=== PATIENT | male | born 1995 | race African-American/Black ===

== ENCOUNTER 2020-06-04 02:46 | Inpatient (IN) | payer OTHER, MEDICAID ==
[~2020-06-04] VITALS: Ht 180.3 cm; Wt 66.2 kg
[2020-06-04] MEDS ORDERED: 0.9% SODIUM CHLORIDE 10 ML SYRINGE IVP PRN (04:15)
[2020-06-04] MEDS ORDERED: ACETAMINOPHEN 325 MG TABLET PO PRN (04:15)
[2020-06-04] MEDS ORDERED: ONDANSETRON HCL 4 MG/2 ML VIAL IVP PRN ×2 (04:15→04:45)
[2020-06-04 04:43] LABS: COVID AG,FIA SOURCE NASOPHARYNGEAL
[2020-06-04 04:45] LABS: HEMATOCRIT 34.7 % (41-53); HEMOGLOBIN 10.6 g/dL (13.5-17.5); MEAN CORPUSCULAR HEMOGLOBIN 24.2 pg (26.0-34.0); MEAN CORPUSCULAR HGB CONC 30.5 G/dL (31.0-37.0); MEAN CORPUSCULAR VOLUME 79 fL (80-100); PLATELET COUNT (AUTO) 273 K/uL (150-450); RED BLOOD CELL COUNT(AUTO) 4.38 MIL/uL (4.50-5.90); RED CELL DISTRIBUTION WIDTH 22.2 % (11.5-14.5)
[2020-06-04 05:13] LABS: ANION GAP 10 mmol/L (8-16); APPEARANCE,URINE CLEAR (CLEAR); BILIRUBIN,URINE NEGATIVE (NEGATIVE); CALCIUM, TOTAL 8.7 mg/dL (8.8-10.5); CARBON DIOXIDE 24 mmol/L (22-29); CHLORIDE 106 mmol/L (98-107); CREATININE 1.14 mg/dL (0.60-1.30); GLOMERULAR FILTR. RATE CALC > 60 mL/min (>60); GLUCOSE, URINE (UA) NEGATIVE (NEGATIVE); GLUCOSE,RANDOM 100 mg/dL (70-110); KETONES,URINE NEGATIVE (NEGATIVE); LEUKOCYTE ESTERASE ,URINE NEGATIVE (NEGATIVE); NITRATE,URINE NEGATIVE (NEGATIVE); OCCULT BLOOD,URINE SMALL (NEGATIVE); POTASSIUM 4.6 mmol/L (3.5-5.1); PROTEIN,URINE SEE CONFIRM (NEGATIVE); SODIUM SERUM 140 mmol/L (136-145); UREA NITROGEN, BLOOD 16 mg/dL (7-18)
[2020-06-04 05:18] LABS: AMPHET/METH SCREEN,URINE NEGATIVE (NEGATIVE); BARBITURATE SCREEN, URINE NEGATIVE (NEGATIVE); BENZODIAZEPINES SCREEN,URINE NEGATIVE (NEGATIVE); CANNABINOID SCREEN,URINE NEGATIVE (NEGATIVE); COCAINE SCREEN,URINE NEGATIVE (NEGATIVE); METHADONE SCREEN, URINE NEGATIVE (NEGATIVE); OPIATE SCREEN,URINE NEGATIVE (NEGATIVE)
[2020-06-04 05:19] LABS: INFLUENZA TYPE A NEGATIVE FOR TYPE A (NEGATIVE); INFLUENZA TYPE B NEGATIVE FOR TYPE B (NEGATIVE)
[2020-06-04 05:21] LABS: B-TYPE NATRIURETIC PEPTIDE 579 pg/mL (0-100)
[2020-06-04 05:23] LABS: PHENCYCLIDINE SCREEN,URINE NEGATIVE (NEGATIVE)
[2020-06-04 05:26] LABS: SULFOSALICYLIC ACID,URINE 2+ (Negative)
[2020-06-04 05:27] LABS: BACTERIA,URINE None Seen /HPF (None Seen); RBC,URINE 0-2 /HPF (0-2); SQUAMOUS EPITHELIAL CELL,UR Rare /LPF (None Seen); WBC,URINE 0-2 /HPF (0-5)
[2020-06-04 05:37] LABS: ALANINE AMINOTRANSFERASE 39 U/L (12-78); ALBUMIN 2.5 g/dL (3.4-5.0); ALKALINE PHOSPHATASE 212 U/L (46-116); ASPARTATE AMINOTRANSFERASE 56 U/L (15-37); BILIRUBIN,TOTAL 1.6 mg/dL (0.1-1.0); CREATINE KINASE, TOTAL ONLY 149 U/L (39-308); LIPASE 110 U/L (73-393); TOTAL PROTEIN, SERUM 8.3 g/dL (6.4-8.2)
[2020-06-04 05:47] LABS: LACTIC ACID 2.6 mmol/L (0.4-2.0)
[2020-06-04 06:01] LABS: BAND NEUTROPHILS % (MANUAL) 6 % (0-5); LYMPHOCYTES % (MANUAL) 12 % (22-44); MONOCYTES % (MANUAL) 8 % (2-9); SEGMENTED NEUTROPHILS % 74 % (40-70)
[2020-06-04 06:20] LABS: % IRON SATURATION 15.7 % (30-44)
[2020-06-04] MEDS: HEPARIN SODIUM,PORCINE 5,000 UNITS/ML VIAL SQ SCH ×3 (08:02→23:21)
[2020-06-04 08:31] VITALS: BP 121/87
[2020-06-04] MEDS ORDERED: INFLUENZA VIRUS VACCINE QVS 2020-21 (6MO+)/PF 60 MCG/0.5 ML SYRINGE IM ONE (11:15)
[2020-06-04] MEDS ORDERED: PNEUMOCOCCAL VACCINE POLYVALENT 0.5 ML VIAL [PPSV23] IM ONE (11:15)
[2020-06-04 11:25] VITALS: BP 129/77
[2020-06-04] MEDS: FUROSEMIDE 20 MG/2 ML VIAL IVP SCH ×2 (13:27→20:17)
[2020-06-04 15:46] VITALS: BP 147/78
[2020-06-04 19:30] VITALS: BP 132/86
[2020-06-04 22:00] VITALS: BP 135/81
[2020-06-04] MEDS ORDERED: IOVERSOL 350 MG/ML 100 ML VIAL ONE (23:49)
[2020-06-04] MEDS ORDERED: SODIUM CHLORIDE 0.9% 100 ML ONE (23:49)
[2020-06-05] MEDS ORDERED: SODIUM CHLORIDE 3% 15 ML NEB SOLUTION NEB ONE (03:18)
[2020-06-05 03:50] VITALS: BP 134/85
[2020-06-05] MEDS: FUROSEMIDE 20 MG/2 ML VIAL IVP SCH (08:33)
[2020-06-05] MEDS: HEPARIN SODIUM,PORCINE 5,000 UNITS/ML VIAL SQ SCH (08:33)
[2020-06-05 09:02] VITALS: BP 133/105
[2020-06-05] MEDS: LISINOPRIL 10 MG TABLET PO SCH (11:00)
[2020-06-05] MEDS: FAMOTIDINE 20 MG TABLET PO SCH ×2 (11:00→21:12)
[2020-06-05] MEDS ORDERED: SODIUM CHLORIDE 0.9% 500 ML IV ONE (11:35)
[2020-06-05] MEDS: DOXYCYCLINE HYCLATE 100 MG TABLET PO SCH ×2 (11:59→21:12)
[2020-06-05] MEDS: CefTRIAXone 1 GM/DEXTROSE 50 ML IV SCH (11:59)
[2020-06-05 15:24] VITALS: BP 131/60
[2020-06-05 16:48] VITALS: BP 131/90
[2020-06-05] MEDS: ACETAMINOPHEN 325 MG TABLET PO PRN (17:09)
[2020-06-05 19:20] VITALS: BP 133/86
[2020-06-05 22:04] LABS: HIV 1-2 SCREEN 4TH GEN W/RFLX Non Reactive (Non Reactive)
[2020-06-05 23:54] VITALS: BP 124/80
[2020-06-06 04:15] VITALS: BP 118/113
[2020-06-06 07:27] VITALS: BP 126/82
[2020-06-06] MEDS: LISINOPRIL 10 MG TABLET PO SCH (09:07)
[2020-06-06] MEDS: DOXYCYCLINE HYCLATE 100 MG TABLET PO SCH ×2 (09:07→20:35)
[2020-06-06] MEDS: FAMOTIDINE 20 MG TABLET PO SCH ×2 (09:07→20:35)
[2020-06-06] MEDS: FUROSEMIDE 20 MG TABLET PO SCH (09:07)
[2020-06-06 11:27] VITALS: BP 122/88
[2020-06-06 11:49] LABS: INR 1.7 (0.9-1.1)
[2020-06-06 11:52] LABS: ALANINE AMINOTRANSFERASE 35 U/L (12-78); ALBUMIN 2.2 g/dL (3.4-5.0); ALKALINE PHOSPHATASE 174 U/L (46-116); ANION GAP 10 mmol/L (8-16); ASPARTATE AMINOTRANSFERASE 53 U/L (15-37); BILIRUBIN,TOTAL 1.8 mg/dL (0.1-1.0); CALCIUM, TOTAL 8.6 mg/dL (8.8-10.5); CARBON DIOXIDE 26 mmol/L (22-29); CHLORIDE 105 mmol/L (98-107); CREATININE 1.07 mg/dL (0.60-1.30); GLOMERULAR FILTR. RATE CALC > 60 mL/min (>60); GLUCOSE,RANDOM 69 mg/dL (70-110); POTASSIUM 4.4 mmol/L (3.5-5.1); SODIUM SERUM 141 mmol/L (136-145); TOTAL PROTEIN, SERUM 7.7 g/dL (6.4-8.2); UREA NITROGEN, BLOOD 20 mg/dL (7-18)
[2020-06-06 15:23] VITALS: BP 129/78
[2020-06-06] MEDS ORDERED: SODIUM CHLORIDE 0.9% 250 ML IV ONE (15:28)
[2020-06-06] MEDS: CefTRIAXone 1 GM/DEXTROSE 50 ML IV SCH (15:40)
[2020-06-06 17:32] LABS: SPECIMENTYPE,BODY FLUID PLEURAL
[2020-06-06 20:00] VITALS: BP 128/82
[2020-06-06] MEDS: CARVEDILOL 3.125 MG TABLET PO SCH (20:35)
[2020-06-06 20:45] LABS: APPEARANCE,SPUN,BODY FLUID CLEAR (CLEAR); APPEARANCE,UNSPUN,BODY FLUID CLOUDY (CLEAR); BODY FLUID RBC 1329.4 /cu. mm.; COLOR,BODY FLUID YELLOW (LT YELLOW); LYMPHOCYTES,BODY FLUID 35 %; MONOCYTES,BODY FLUID 7 %; NEUTROPHILS,BODY FLUID 58 %; TOTAL VOLUME,BODY FLUID 1650 mL; WBC, BODY FLUID 101.11 /cu. mm.
[2020-06-07] MEDS: ACETAMINOPHEN 325 MG TABLET PO PRN (00:07)
[2020-06-07 00:24] VITALS: BP 129/102
[2020-06-07 05:10] VITALS: BP 108/81
[2020-06-07 08:21] VITALS: BP 107/78
[2020-06-07] MEDS: FAMOTIDINE 20 MG TABLET PO SCH ×2 (08:46→21:03)
[2020-06-07] MEDS: DOXYCYCLINE HYCLATE 100 MG TABLET PO SCH ×2 (08:46→21:03)
[2020-06-07] MEDS: FUROSEMIDE 20 MG TABLET PO SCH (08:46)
[2020-06-07] MEDS: CARVEDILOL 3.125 MG TABLET PO SCH ×2 (09:00→21:03)
[2020-06-07] MEDS: LISINOPRIL 10 MG TABLET PO SCH (09:00)
[2020-06-07 13:19] LABS: SPECIMENTYPE,BODY FLUID ASCITES
[2020-06-07] MEDS ORDERED: SODIUM CHLORIDE 3% 15 ML NEB SOLUTION NEB ONE (14:41)
[2020-06-07] MEDS: CefTRIAXone 1 GM/DEXTROSE 50 ML IV SCH (14:43)
[2020-06-07 15:37] VITALS: BP 120/74
[2020-06-07 16:10] LABS: APPEARANCE,SPUN,BODY FLUID CLEAR (CLEAR); APPEARANCE,UNSPUN,BODY FLUID CLOUDY (CLEAR); COLOR,BODY FLUID YELLOW (LT YELLOW); TOTAL VOLUME,BODY FLUID 700 mL; WBC, BODY FLUID 60 /cu. mm.
[2020-06-07 16:11] LABS: BASOPHILS,BODY FLUID 0 %; EOSINOPHILS,BF (ANAL) 0 %; LYMPHOCYTES,BODY FLUID 94 %; MONOCYTES,BODY FLUID 3 %; NEUTROPHILS,BODY FLUID 3 %
[2020-06-07 20:05] VITALS: BP 116/81
[2020-06-07 22:25] VITALS: BP 117/67
[2020-06-08 05:35] VITALS: BP 111/73
[2020-06-08 08:33] VITALS: BP 119/74
[2020-06-08] MEDS: FUROSEMIDE 20 MG TABLET PO SCH (08:55)
[2020-06-08] MEDS: DOXYCYCLINE HYCLATE 100 MG TABLET PO SCH ×2 (08:55→20:25)
[2020-06-08] MEDS: LISINOPRIL 10 MG TABLET PO SCH (08:55)
[2020-06-08] MEDS: CARVEDILOL 3.125 MG TABLET PO SCH ×2 (08:55→20:25)
[2020-06-08] MEDS: FAMOTIDINE 20 MG TABLET PO SCH ×2 (08:55→20:25)
[2020-06-08] MEDS: CefTRIAXone 1 GM/DEXTROSE 50 ML IV SCH (10:50)
[2020-06-08 20:35] VITALS: BP 132/85
[2020-06-09 04:45] VITALS: BP 132/83
[2020-06-09] MEDS: ACETAMINOPHEN 325 MG TABLET PO PRN (05:15)
[2020-06-09 07:15] LABS: HEMATOCRIT 33.3 % (41-53); HEMOGLOBIN 10.1 g/dL (13.5-17.5); MEAN CORPUSCULAR HEMOGLOBIN 24.4 pg (26.0-34.0); MEAN CORPUSCULAR HGB CONC 30.3 G/dL (31.0-37.0); MEAN CORPUSCULAR VOLUME 81 fL (80-100); PLATELET COUNT (AUTO) 196 K/uL (150-450); RED BLOOD CELL COUNT(AUTO) 4.13 MIL/uL (4.50-5.90)
[2020-06-09 07:24] LABS: ALANINE AMINOTRANSFERASE 31 U/L (12-78); ALKALINE PHOSPHATASE 154 U/L (46-116); ANION GAP 10 mmol/L (8-16); ASPARTATE AMINOTRANSFERASE 31 U/L (15-37); BILIRUBIN,TOTAL 0.9 mg/dL (0.1-1.0); CALCIUM, TOTAL 8.2 mg/dL (8.8-10.5); CARBON DIOXIDE 23 mmol/L (22-29); CHLORIDE 106 mmol/L (98-107); CREATININE 1.07 mg/dL (0.60-1.30); GLOMERULAR FILTR. RATE CALC > 60 mL/min (>60); GLUCOSE,RANDOM 84 mg/dL (70-110); LACTATE DEHYDROGENASE 277 U/L (85-227); POTASSIUM 4.5 mmol/L (3.5-5.1); SODIUM SERUM 139 mmol/L (136-145); TOTAL PROTEIN, SERUM 6.8 g/dL (6.4-8.2); UREA NITROGEN, BLOOD 21 mg/dL (7-18)
[2020-06-09 07:41] VITALS: BP 113/70
[2020-06-09] MEDS: FAMOTIDINE 20 MG TABLET PO SCH ×2 (08:28→21:22)
[2020-06-09] MEDS: FUROSEMIDE 20 MG TABLET PO SCH (08:28)
[2020-06-09] MEDS: LISINOPRIL 10 MG TABLET PO SCH (08:28)
[2020-06-09] MEDS: CARVEDILOL 3.125 MG TABLET PO SCH ×2 (08:28→21:22)
[2020-06-09] MEDS: DOXYCYCLINE HYCLATE 100 MG TABLET PO SCH ×2 (08:28→21:22)
[2020-06-09 08:35] LABS: BAND NEUTROPHILS % (MANUAL) 0 % (0-5)
[2020-06-09 08:36] LABS: CORRECTED WHITE BLOOD COUNT 3.4 K/uL (4.5-11.0); EOSINOPHILS % (MANUAL) 1 % (1-6); LYMPHOCYTES % (MANUAL) 25 % (22-44); MONOCYTES % (MANUAL) 12 % (2-9); SEGMENTED NEUTROPHILS % 62 % (40-70)
[2020-06-09] MEDS: CefTRIAXone 1 GM/DEXTROSE 50 ML IV SCH (11:33)
[2020-06-09 15:38] LABS: ORGANISM ID Not Indicated; S PNEUMO SOURCE Urine
[2020-06-09 15:39] LABS: STREP PNEUMONIAE AG URINE Negative
[2020-06-09 18:39] LABS: QUANTIFERON, TB GOLD PLUS Positive (Negative)
[2020-06-09 18:39] LABS: LEGIONELLA PNEUMO AG URINE Negative (Negative)
[2020-06-09 20:29] VITALS: BP 125/70
[2020-06-10 04:52] VITALS: BP 117/84
[2020-06-10 08:05] VITALS: BP 112/64
[2020-06-10] MEDS: DOXYCYCLINE HYCLATE 100 MG TABLET PO SCH (08:35)
[2020-06-10] MEDS: FUROSEMIDE 20 MG TABLET PO SCH (08:35)
[2020-06-10] MEDS: FAMOTIDINE 20 MG TABLET PO SCH ×2 (08:35→20:33)
[2020-06-10] MEDS: CARVEDILOL 3.125 MG TABLET PO SCH ×2 (08:35→20:34)
[2020-06-10] MEDS: LISINOPRIL 10 MG TABLET PO SCH (08:35)
[2020-06-10] MEDS ORDERED: SODIUM CHLORIDE 0.9% 250 ML IV ONE (10:50)
[2020-06-10] MEDS: CefTRIAXone 1 GM/DEXTROSE 50 ML IV SCH (11:09)
[2020-06-10] MEDS: PYRAZINAMIDE 500 MG TABLET PO SCH (11:42)
[2020-06-10] MEDS: RIFAMPIN 300 MG CAPSULE PO SCH (11:42)
[2020-06-10] MEDS: ISONIAZID 300 MG TABLET PO SCH (11:42)
[2020-06-10] MEDS: PYRIDOXINE HCL 50 MG TABLET PO SCH (11:42)
[2020-06-10] MEDS: ETHAMBUTOL HCL 400 MG TABLET PO SCH (11:43)
[2020-06-10 20:32] VITALS: BP 138/71
[2020-06-10] MEDS: ACETAMINOPHEN 325 MG TABLET PO PRN (20:33)
[2020-06-11 07:58] VITALS: BP 118/65
[2020-06-11] MEDS: PYRIDOXINE HCL 50 MG TABLET PO SCH (08:57)
[2020-06-11] MEDS: PYRAZINAMIDE 500 MG TABLET PO SCH (08:57)
[2020-06-11] MEDS: LISINOPRIL 10 MG TABLET PO SCH (08:58)
[2020-06-11] MEDS: MULTIVITAMINS WITH MINERALS, THERAPEUTIC TABLET PO SCH (08:58)
[2020-06-11] MEDS: FUROSEMIDE 20 MG TABLET PO SCH (08:58)
[2020-06-11] MEDS: CARVEDILOL 3.125 MG TABLET PO SCH ×2 (08:58→22:07)
[2020-06-11] MEDS: FAMOTIDINE 20 MG TABLET PO SCH ×2 (08:58→22:07)
[2020-06-11] MEDS: ISONIAZID 300 MG TABLET PO SCH (08:58)
[2020-06-11] MEDS: RIFAMPIN 300 MG CAPSULE PO SCH (08:58)
[2020-06-11] MEDS: ETHAMBUTOL HCL 400 MG TABLET PO SCH (12:48)
[2020-06-11 20:08] VITALS: BP 126/94
[2020-06-11] MEDS ORDERED: IOVERSOL 350 MG/ML 100 ML VIAL ONE (20:52)
[2020-06-11] MEDS ORDERED: SODIUM CHLORIDE 0.9% 100 ML ONE (20:52)
[2020-06-11] MEDS: ACETAMINOPHEN 325 MG TABLET PO PRN (22:07)
[2020-06-12 05:05] VITALS: BP 123/77
[2020-06-12 08:26] VITALS: BP 112/81
[2020-06-12] MEDS: FUROSEMIDE 20 MG TABLET PO SCH (08:43)
[2020-06-12] MEDS: PYRIDOXINE HCL 50 MG TABLET PO SCH (08:43)
[2020-06-12] MEDS: PYRAZINAMIDE 500 MG TABLET PO SCH (08:43)
[2020-06-12] MEDS: CARVEDILOL 3.125 MG TABLET PO SCH ×2 (08:43→19:46)
[2020-06-12] MEDS: LISINOPRIL 10 MG TABLET PO SCH (08:43)
[2020-06-12] MEDS: ISONIAZID 300 MG TABLET PO SCH (08:43)
[2020-06-12] MEDS: ETHAMBUTOL HCL 400 MG TABLET PO SCH (08:43)
[2020-06-12] MEDS: RIFAMPIN 300 MG CAPSULE PO SCH (08:43)
[2020-06-12] MEDS: FAMOTIDINE 20 MG TABLET PO SCH ×2 (08:43→19:46)
[2020-06-12] MEDS: MULTIVITAMINS WITH MINERALS, THERAPEUTIC TABLET PO SCH (09:34)
[2020-06-12 15:39] LABS: ALANINE AMINOTRANSFERASE 27 U/L (12-78); ALBUMIN 2.2 g/dL (3.4-5.0); ALKALINE PHOSPHATASE 160 U/L (46-116); ANION GAP 7 mmol/L (8-16); ASPARTATE AMINOTRANSFERASE 25 U/L (15-37); BILIRUBIN,TOTAL 2.1 mg/dL (0.1-1.0); CALCIUM, TOTAL 8.3 mg/dL (8.8-10.5); CARBON DIOXIDE 26 mmol/L (22-29); CHLORIDE 104 mmol/L (98-107); GLOMERULAR FILTR. RATE CALC > 60 mL/min (>60); GLUCOSE,RANDOM 111 mg/dL (70-110); LIPASE 222 U/L (73-393); POTASSIUM 4.8 mmol/L (3.5-5.1); SODIUM SERUM 137 mmol/L (136-145); TOTAL PROTEIN, SERUM 7.1 g/dL (6.4-8.2); UREA NITROGEN, BLOOD 24 mg/dL (7-18)
[2020-06-12 19:21] LABS: CREATININE,URINE RANDOM 56.6 mg/dL (30.0-125.0)
[2020-06-12] MEDS: PANTOPRAZOLE SODIUM 40 MG DR TABLET PO SCH (19:47)
[2020-06-12 20:43] VITALS: BP 126/82
[2020-06-13 04:25] VITALS: BP 115/73
[2020-06-13 07:30] VITALS: BP 115/84
[2020-06-13] MEDS: PYRAZINAMIDE 500 MG TABLET PO SCH (08:45)
[2020-06-13] MEDS: MULTIVITAMINS WITH MINERALS, THERAPEUTIC TABLET PO SCH (08:45)
[2020-06-13] MEDS: FAMOTIDINE 20 MG TABLET PO SCH ×2 (08:46→20:11)
[2020-06-13] MEDS: LISINOPRIL 10 MG TABLET PO SCH (08:46)
[2020-06-13] MEDS: RIFAMPIN 300 MG CAPSULE PO SCH (08:46)
[2020-06-13] MEDS: PYRIDOXINE HCL 50 MG TABLET PO SCH (08:46)
[2020-06-13] MEDS: PANTOPRAZOLE SODIUM 40 MG DR TABLET PO SCH ×2 (08:46→20:11)
[2020-06-13] MEDS: CARVEDILOL 3.125 MG TABLET PO SCH ×2 (08:46→20:11)
[2020-06-13] MEDS: ISONIAZID 300 MG TABLET PO SCH (08:46)
[2020-06-13] MEDS: FUROSEMIDE 20 MG TABLET PO SCH (08:47)
[2020-06-13 09:32] LABS: CHOL/HDL RATIO 5.1 (4.2-7.3); THYROID STIMULATING HORMONE 15.07 uIU/mL (0.36-3.74)
[2020-06-13] MEDS: ETHAMBUTOL HCL 400 MG TABLET PO SCH (09:57)
[2020-06-13 12:06] LABS: U HISTOPLASMA GALACTOMANNAN AG <0.5 (<0.5 ng/mL)
[2020-06-13 12:50] LABS: FREE T4 (FREE THYROXINE) 1.62 ng/dL (0.76-1.46)
[2020-06-13 20:34] VITALS: BP 125/66
[2020-06-14 05:13] VITALS: BP 127/87
[2020-06-14 07:40] LABS: HEMOGLOBIN 10.8 g/dL (13.5-17.5); INR 1.4 (0.9-1.1); MEAN CORPUSCULAR HEMOGLOBIN 24.5 pg (26.0-34.0); MEAN CORPUSCULAR HGB CONC 30.9 G/dL (31.0-37.0); MEAN CORPUSCULAR VOLUME 79 fL (80-100); PLATELET COUNT (AUTO) 185 K/uL (150-450); PROTHROMBIN TIME 14.6 SEC (9.4-11.6); RED BLOOD CELL COUNT(AUTO) 4.41 MIL/uL (4.50-5.90)
[2020-06-14 07:50] LABS: ALANINE AMINOTRANSFERASE 22 U/L (12-78); ALBUMIN 2.2 g/dL (3.4-5.0); ALKALINE PHOSPHATASE 195 U/L (46-116); ANION GAP 7 mmol/L (8-16); ASPARTATE AMINOTRANSFERASE 20 U/L (15-37); BILIRUBIN,TOTAL 1.4 mg/dL (0.1-1.0); CALCIUM, TOTAL 8.6 mg/dL (8.8-10.5); CARBON DIOXIDE 27 mmol/L (22-29); CHLORIDE 105 mmol/L (98-107); CREATININE 1.15 mg/dL (0.60-1.30); FREE T4 (FREE THYROXINE) 1.56 ng/dL (0.76-1.46); GLOMERULAR FILTR. RATE CALC > 60 mL/min (>60); GLUCOSE,RANDOM 76 mg/dL (70-110); POTASSIUM 5.2 mmol/L (3.5-5.1); SODIUM SERUM 139 mmol/L (136-145); TOTAL PROTEIN, SERUM 7.2 g/dL (6.4-8.2); UREA NITROGEN, BLOOD 25 mg/dL (7-18)
[2020-06-14] MEDS ORDERED: SODIUM ZIRCONIUM CYCLOSILICATE 5 GM POWDER PACKET PO ONE (08:30)
[2020-06-14 08:36] LABS: BAND NEUTROPHILS % (MANUAL) 0 % (0-5)
[2020-06-14 08:37] LABS: BASOPHILS % (MANUAL) 1 % (0-2); CORRECTED WHITE BLOOD COUNT 2.9 K/uL (4.5-11.0); EOSINOPHILS % (MANUAL) 2 % (1-6); LYMPHOCYTES % (MANUAL) 30 % (22-44); MONOCYTES % (MANUAL) 15 % (2-9); SEGMENTED NEUTROPHILS % 52 % (40-70)
[2020-06-14] MEDS: PYRIDOXINE HCL 50 MG TABLET PO SCH (08:54)
[2020-06-14] MEDS: FAMOTIDINE 20 MG TABLET PO SCH ×2 (08:54→21:30)
[2020-06-14] MEDS: FUROSEMIDE 20 MG TABLET PO SCH (08:54)
[2020-06-14] MEDS: ISONIAZID 300 MG TABLET PO SCH (08:54)
[2020-06-14] MEDS: CARVEDILOL 3.125 MG TABLET PO SCH ×2 (08:54→21:00)
[2020-06-14] MEDS: MULTIVITAMINS WITH MINERALS, THERAPEUTIC TABLET PO SCH (08:54)
[2020-06-14] MEDS: ETHAMBUTOL HCL 400 MG TABLET PO SCH (08:55)
[2020-06-14] MEDS: RIFAMPIN 300 MG CAPSULE PO SCH (08:55)
[2020-06-14] MEDS: PYRAZINAMIDE 500 MG TABLET PO SCH (08:55)
[2020-06-14] MEDS: PANTOPRAZOLE SODIUM 40 MG DR TABLET PO SCH ×2 (08:55→21:30)
[2020-06-14] MEDS ORDERED: SODIUM POLYSTYRENE SULFONATE 15 GM/60 ML SUSPENSION BOTTLE PO ONE (12:00)
[2020-06-14] MEDS ORDERED: SODIUM CHLORIDE 0.9% 100 ML ONE (12:21)
[2020-06-14] MEDS ORDERED: DOXYCYCLINE HYCLATE 100 MG/VIAL IPL ONE (12:30)
[2020-06-14] MEDS ORDERED: LIDOCAINE/PF 1% 30 ML VIAL ONE (12:58)
[2020-06-14] MEDS ORDERED: SODIUM CHLORIDE 0.9% 500 ML IV ONE (13:13)
[2020-06-14 14:02] LABS: HEPATITIS C AB (EIA) <0.1 s/co ratio (0.0-0.9)
[2020-06-14] MEDS ORDERED: RINGERS SOLUTION,LACTATED 1,000 ML IV ONE ×2 (14:16→15:17)
[2020-06-14 14:19] VITALS: BP 117/79
[2020-06-14] MEDS ORDERED: SUGAMMADEX SODIUM 200 MG/2 ML VIAL IVP ONE ×2 (16:43→17:40)
[2020-06-14] MEDS ORDERED: NOREPINEPHRINE 4 MG/D5%-WATER 250 ML IV ONE (17:27)
[2020-06-14 17:30] LABS: ABG A-A DIFF O2 325.4 mmHg (10-20.0); ABG BASE EXCESS -5.5 mmol/L (-2.0-3.0); ABG CARBOXYHEMOGLOBIN 1.1 % (0.0-3.0); ABG HCO3 20.8 mmol/L (22.0-26.0); ABG METHEMOGLOBIN 0.1 % (0.0-1.5); ABG OXYGEN CONTENT 18.2 mL/dL (15.0-23.0); ABG OXYGEN SATURATION 99.7 % (95.0-98.0); ABG OXYHEMOGLOBIN 98.5 % (94.0-100.0); ABG PCO2 31 mmHg (35-45); ABG TOTAL HEMOGLOBIN 12.5 G/dL (12.0-18.0); PO2, ARTERIAL BG 357.5 mmHg (80.0-100.0); SOURCE, BLOOD GAS ARTERIAL
[2020-06-14] MEDS ORDERED: NOREPINEPHRINE 4 MG/D5%-WATER 250 ML IV PRN (17:30)
[2020-06-14 17:31] LABS: O2 DEVICE,BLOOD GAS VENTILATOR (ROOM AIR); PEEP,BG 5 cm H2O; SITE, BLOOD GAS ARTERIAL LINE; SPONTANEOUS VT, BG 510 ml; VT, ABG 500 ml
[2020-06-14] MEDS ORDERED: MORPHINE SULFATE 2 MG/ML SYRINGE ONE (18:27)
[2020-06-14] MEDS ORDERED: MORPHINE SULFATE 2 MG/ML SYRINGE IVP ONE (18:30)
[2020-06-14 18:49] LABS: SPECIMENTYPE,BODY FLUID PLEURAL
[2020-06-14] MEDS ORDERED: SODIUM CHLORIDE 0.9% 1,000 ML ONE (18:51)
[2020-06-14 19:23] LABS: HEMATOCRIT 39.6 % (41-53); HEMOGLOBIN 12.3 g/dL (13.5-17.5); MEAN CORPUSCULAR HEMOGLOBIN 24.6 pg (26.0-34.0); MEAN CORPUSCULAR VOLUME 80 fL (80-100); PLATELET COUNT (AUTO) 193 K/uL (150-450); RED BLOOD CELL COUNT(AUTO) 4.98 MIL/uL (4.50-5.90); RED CELL DISTRIBUTION WIDTH 23.6 % (11.5-14.5)
[2020-06-14 19:26] LABS: APPEARANCE,SPUN,BODY FLUID CLEAR (CLEAR); APPEARANCE,UNSPUN,BODY FLUID SLIGHTLY CLOUDY (CLEAR)
[2020-06-14 19:27] LABS: COLOR,BODY FLUID YELLOW (LT YELLOW)
[2020-06-14 19:28] LABS: TOTAL VOLUME,BODY FLUID 20 mL
[2020-06-14 19:29] LABS: WBC, BODY FLUID 82 /cu. mm.
[2020-06-14 19:41] LABS: ANION GAP 16 mmol/L (8-16); CALCIUM, TOTAL 9.3 mg/dL (8.8-10.5); CARBON DIOXIDE 19 mmol/L (22-29); CHLORIDE 102 mmol/L (98-107); CREATININE 1.16 mg/dL (0.60-1.30); GLOMERULAR FILTR. RATE CALC > 60 mL/min (>60); GLUCOSE,RANDOM 64 mg/dL (70-110); POTASSIUM 4.9 mmol/L (3.5-5.1); SODIUM SERUM 137 mmol/L (136-145); UREA NITROGEN, BLOOD 26 mg/dL (7-18)
[2020-06-14 19:47] LABS: ALANINE AMINOTRANSFERASE 17 U/L (12-78); ALBUMIN 2.2 g/dL (3.4-5.0); ALKALINE PHOSPHATASE 158 U/L (46-116); ASPARTATE AMINOTRANSFERASE 26 U/L (15-37); BILIRUBIN,TOTAL 2.3 mg/dL (0.1-1.0); TOTAL PROTEIN, SERUM 7.3 g/dL (6.4-8.2)
[2020-06-14 19:50] LABS: ABG A-A DIFF O2 377.1 mmHg (10-20.0); ABG BASE EXCESS -9.6 mmol/L (-2.0-3.0); ABG CARBOXYHEMOGLOBIN 1.3 % (0.0-3.0); ABG HCO3 17.6 mmol/L (22.0-26.0); ABG METHEMOGLOBIN 0.3 % (0.0-1.5); ABG OXYGEN CONTENT 16.8 mL/dL (15.0-23.0); ABG OXYGEN SATURATION 95.1 % (95.0-98.0); ABG OXYHEMOGLOBIN 93.6 % (94.0-100.0); ABG PCO2 33 mmHg (35-45); ABG PH 7.319 (7.350-7.450); ABG TOTAL HEMOGLOBIN 12.7 G/dL (12.0-18.0); PO2, ARTERIAL BG 86.6 mmHg (80.0-100.0); SOURCE, BLOOD GAS ARTERIAL; TEMPERATURE, FAHRENHEIT, BG 98.6 FAHREN (96.0-98.6)
[2020-06-14 19:51] LABS: O2 DEVICE,BLOOD GAS SIMPLE MASK (ROOM AIR); SITE, BLOOD GAS RT FEMORAL
[2020-06-14 19:55] LABS: LACTIC ACID 5.3 mmol/L (0.4-2.0)
[2020-06-14] MEDS ORDERED: MAGNESIUM SULFATE 1 GM in DEXTROSE 5%-WATER 50 ML IV ONE (21:00)
[2020-06-14] MEDS: ALBUMIN HUMAN 25%-12.5GM/50ML 50 ML IV SCH (21:30)
[2020-06-14 21:44] LABS: BAND NEUTROPHILS % (MANUAL) 6 % (0-5); LYMPHOCYTES % (MANUAL) 12 % (22-44); MONOCYTES % (MANUAL) 10 % (2-9); SEGMENTED NEUTROPHILS % 72 % (40-70)
[2020-06-14] MEDS: SODIUM BICARBONATE 75 MEQ in DEXTROSE 5%-WATER 1,000 ML IV SCH (21:50)
[2020-06-14 21:51] LABS: BASOPHILS,BODY FLUID 0 %; EOSINOPHILS,BF (ANAL) 0 %; LYMPHOCYTES,BODY FLUID 30 %; MONOCYTES,BODY FLUID 27 %; NEUTROPHILS,BODY FLUID 43 %
[2020-06-14] MEDS: MORPHINE SULFATE 2 MG/ML SYRINGE IVP PRN (22:37)
[2020-06-15] VITALS (8 sets, daily range): BP systolic 103–134; BP diastolic 66–99
[2020-06-15] MEDS: MORPHINE SULFATE 2 MG/ML SYRINGE IVP PRN ×5 (00:36→18:31)
[2020-06-15] MEDS: ALBUMIN HUMAN 25%-12.5GM/50ML 50 ML IV SCH ×4 (02:23→21:14)
[2020-06-15 02:55] LABS: APPEARANCE,URINE CLOUDY (CLEAR); BILIRUBIN,URINE NEGATIVE (NEGATIVE); GLUCOSE, URINE (UA) NEGATIVE (NEGATIVE); KETONES,URINE TRACE mg/dL (NEGATIVE); LEUKOCYTE ESTERASE ,URINE SMALL (NEGATIVE); NITRATE,URINE NEGATIVE (NEGATIVE); OCCULT BLOOD,URINE LARGE (NEGATIVE); PROTEIN,URINE TRACE (NEGATIVE); UROBILINOGEN,URINE 0.2 mg/dL (<=1.0)
[2020-06-15 03:09] LABS: RBC,URINE 51-100 /HPF (0-2)
[2020-06-15 03:10] LABS: BACTERIA,URINE None Seen /HPF (None Seen); SQUAMOUS EPITHELIAL CELL,UR Rare /LPF (None Seen)
[2020-06-15 05:43] LABS: BASOPHILS % (AUTO) 0.5 % (0.0-2.0); EOSINOPHILS % (AUTO) 0 % (1.0-6.0); HEMATOCRIT 37.2 % (41-53); HEMOGLOBIN 11.3 g/dL (13.5-17.5); LYMPHOCYTES # (AUTO) 0.8 K/uL (1.0-4.8); LYMPHOCYTES % (AUTO) 6.6 % (22.0-44.0); MEAN CORPUSCULAR HEMOGLOBIN 24.6 pg (26.0-34.0); MEAN CORPUSCULAR HGB CONC 30.4 G/dL (31.0-37.0); MEAN CORPUSCULAR VOLUME 81 fL (80-100); MONOCYTES # (AUTO) 0.7 K/uL (0.1-1.0); MONOCYTES % (AUTO) 5.8 % (2.0-9.0); NEUTROPHILS # (AUTO) 11.1 K/uL (1.8-7.7); PLATELET COUNT (AUTO) 187 K/uL (150-450); RED CELL DISTRIBUTION WIDTH 23.7 % (11.5-14.5)
[2020-06-15 05:55] LABS: NEUTROPHILS % (AUTO) 87.1 % (40.0-70.0)
[2020-06-15 06:00] LABS: ALANINE AMINOTRANSFERASE 17 U/L (12-78); ALBUMIN 2.4 g/dL (3.4-5.0); ALKALINE PHOSPHATASE 141 U/L (46-116); ANION GAP 12 mmol/L (8-16); ASPARTATE AMINOTRANSFERASE 25 U/L (15-37); CALCIUM, TOTAL 8.9 mg/dL (8.8-10.5); CARBON DIOXIDE 23 mmol/L (22-29); CHLORIDE 103 mmol/L (98-107); CREATININE 1.61 mg/dL (0.60-1.30); GLOMERULAR FILTR. RATE CALC > 60 mL/min (>60); GLUCOSE,RANDOM 114 mg/dL (70-110); SODIUM SERUM 138 mmol/L (136-145); UREA NITROGEN, BLOOD 27 mg/dL (7-18)
[2020-06-15] MEDS ORDERED: DEXTROSE 50%-WATER 25 GM/50 ML SYRINGE IVP ONE (06:15)
[2020-06-15] MEDS ORDERED: SODIUM POLYSTYRENE SULFONATE 15 GM/60 ML SUSPENSION BOTTLE PO ONE ×2 (06:15→18:00)
[2020-06-15] MEDS ORDERED: INSULIN REGULAR, HUMAN 100 UNITS/ML IVP ONE (06:15)
[2020-06-15] MEDS ORDERED: PROPOFOL 1% 20 ML VIAL IVP ONE (06:41)
[2020-06-15] MEDS ORDERED: ROCURONIUM BROMIDE 10 MG/ML 5 ML VIAL IVP ONE (06:41)
[2020-06-15] MEDS ORDERED: MIDAZOLAM HCL 2 MG/2 ML VIAL IVP ONE (06:41)
[2020-06-15] MEDS ORDERED: SUCCINYLCHOLINE CHLORIDE 20 MG/ML 10 ML VIAL IVP ONE (06:41)
[2020-06-15] MEDS ORDERED: ONDANSETRON HCL 4 MG/2 ML VIAL IVP ONE (06:41)
[2020-06-15] MEDS ORDERED: FentaNYL CITRATE PF 100 MCG/2 ML VIAL IVP ONE (06:41)
[2020-06-15] MEDS: FAMOTIDINE 20 MG TABLET PO SCH ×2 (08:35→21:01)
[2020-06-15] MEDS: PYRIDOXINE HCL 50 MG TABLET PO SCH (08:35)
[2020-06-15] MEDS: MULTIVITAMINS WITH MINERALS, THERAPEUTIC TABLET PO SCH (08:35)
[2020-06-15] MEDS: ETHAMBUTOL HCL 400 MG TABLET PO SCH (08:35)
[2020-06-15] MEDS: ISONIAZID 300 MG TABLET PO SCH (08:36)
[2020-06-15] MEDS: RIFAMPIN 300 MG CAPSULE PO SCH (08:36)
[2020-06-15] MEDS: CARVEDILOL 3.125 MG TABLET PO SCH ×2 (08:36→20:54)
[2020-06-15] MEDS: PANTOPRAZOLE SODIUM 40 MG DR TABLET PO SCH ×2 (08:36→21:01)
[2020-06-15] MEDS: PYRAZINAMIDE 500 MG TABLET PO SCH (08:37)
[2020-06-15] MEDS: SODIUM BICARBONATE 75 MEQ in DEXTROSE 5%-WATER 1,000 ML IV SCH (12:35)
[2020-06-15 14:36] LABS: ANION GAP 11 mmol/L (8-16); CALCIUM, TOTAL 8.2 mg/dL (8.8-10.5); CARBON DIOXIDE 23 mmol/L (22-29); CHLORIDE 103 mmol/L (98-107); CREATININE 1.43 mg/dL (0.60-1.30); GLOMERULAR FILTR. RATE CALC > 60 mL/min (>60); GLUCOSE,RANDOM 123 mg/dL (70-110); POTASSIUM 5.8 mmol/L (3.5-5.1); SODIUM SERUM 137 mmol/L (136-145); UREA NITROGEN, BLOOD 27 mg/dL (7-18)
[2020-06-16] MEDS: ALBUMIN HUMAN 25%-12.5GM/50ML 50 ML IV SCH ×4 (01:37→20:09)
[2020-06-16] MEDS: MORPHINE SULFATE 2 MG/ML SYRINGE IVP PRN ×2 (01:38→20:23)
[2020-06-16] MEDS: SODIUM BICARBONATE 75 MEQ in DEXTROSE 5%-WATER 1,000 ML IV SCH (04:15)
[2020-06-16 04:36] VITALS: BP 105/82
[2020-06-16 06:59] LABS: ANION GAP 6 mmol/L (8-16); CALCIUM, TOTAL 8.1 mg/dL (8.8-10.5); CARBON DIOXIDE 30 mmol/L (22-29); CHLORIDE 103 mmol/L (98-107); CREATININE 1.39 mg/dL (0.60-1.30); GLOMERULAR FILTR. RATE CALC > 60 mL/min (>60); GLUCOSE,RANDOM 95 mg/dL (70-110); PHOSPHORUS 3.8 mg/dL (2.5-4.9); POTASSIUM 4.4 mmol/L (3.5-5.1); SODIUM SERUM 139 mmol/L (136-145); UREA NITROGEN, BLOOD 23 mg/dL (7-18)
[2020-06-16 07:05] LABS: EOSINOPHILS % (AUTO) 0.8 % (1.0-6.0); HEMATOCRIT 32.8 % (41-53); HEMOGLOBIN 10.1 g/dL (13.5-17.5); LYMPHOCYTES # (AUTO) 0.7 K/uL (1.0-4.8); LYMPHOCYTES % (AUTO) 17.8 % (22.0-44.0); MEAN CORPUSCULAR HEMOGLOBIN 24.7 pg (26.0-34.0); MEAN CORPUSCULAR HGB CONC 30.8 G/dL (31.0-37.0); MEAN CORPUSCULAR VOLUME 80 fL (80-100); MONOCYTES # (AUTO) 0.6 K/uL (0.1-1.0); MONOCYTES % (AUTO) 14.1 % (2.0-9.0); NEUTROPHILS # (AUTO) 2.6 K/uL (1.8-7.7); NEUTROPHILS % (AUTO) 66.3 % (40.0-70.0); PLATELET COUNT (AUTO) 173 K/uL (150-450); RED BLOOD CELL COUNT(AUTO) 4.09 MIL/uL (4.50-5.90); RED CELL DISTRIBUTION WIDTH 23.1 % (11.5-14.5)
[2020-06-16 07:40] VITALS: BP 113/75
[2020-06-16] MEDS: PANTOPRAZOLE SODIUM 40 MG DR TABLET PO SCH ×2 (09:44→20:09)
[2020-06-16] MEDS: FAMOTIDINE 20 MG TABLET PO SCH ×2 (09:44→20:09)
[2020-06-16] MEDS: MULTIVITAMINS WITH MINERALS, THERAPEUTIC TABLET PO SCH (09:44)
[2020-06-16] MEDS: CARVEDILOL 3.125 MG TABLET PO SCH ×2 (09:44→20:09)
[2020-06-16] MEDS: PYRAZINAMIDE 500 MG TABLET PO SCH (09:44)
[2020-06-16] MEDS: ETHAMBUTOL HCL 400 MG TABLET PO SCH (09:45)
[2020-06-16] MEDS: RIFAMPIN 300 MG CAPSULE PO SCH (09:45)
[2020-06-16] MEDS: ISONIAZID 300 MG TABLET PO SCH (09:45)
[2020-06-16] MEDS: PYRIDOXINE HCL 50 MG TABLET PO SCH (09:45)
[2020-06-16 11:20] VITALS: BP 119/85
[2020-06-16 15:17] VITALS: BP 113/82
[2020-06-16 20:04] VITALS: BP 125/82
[2020-06-16 23:43] VITALS: BP 117/67
[2020-06-17] MEDS: ALBUMIN HUMAN 25%-12.5GM/50ML 50 ML IV SCH ×3 (01:00→15:04)
[2020-06-17 04:20] VITALS: BP 127/84
[2020-06-17] MEDS: MORPHINE SULFATE 2 MG/ML SYRINGE IVP PRN ×4 (05:02→21:21)
[2020-06-17 06:09] LABS: BASOPHILS % (AUTO) 0.7 % (0.0-2.0); EOSINOPHILS % (AUTO) 1.7 % (1.0-6.0); HEMATOCRIT 32.5 % (41-53); HEMOGLOBIN 10.2 g/dL (13.5-17.5); LYMPHOCYTES # (AUTO) 0.7 K/uL (1.0-4.8); LYMPHOCYTES % (AUTO) 14.7 % (22.0-44.0); MEAN CORPUSCULAR HEMOGLOBIN 24.9 pg (26.0-34.0); MEAN CORPUSCULAR HGB CONC 31.3 G/dL (31.0-37.0); MEAN CORPUSCULAR VOLUME 80 fL (80-100); MONOCYTES # (AUTO) 0.5 K/uL (0.1-1.0); MONOCYTES % (AUTO) 9.3 % (2.0-9.0); NEUTROPHILS # (AUTO) 3.6 K/uL (1.8-7.7); NEUTROPHILS % (AUTO) 73.6 % (40.0-70.0); PLATELET COUNT (AUTO) 143 K/uL (150-450); RED BLOOD CELL COUNT(AUTO) 4.09 MIL/uL (4.50-5.90); RED CELL DISTRIBUTION WIDTH 23.4 % (11.5-14.5)
[2020-06-17 06:26] LABS: ANION GAP 8 mmol/L (8-16); CALCIUM, TOTAL 8.2 mg/dL (8.8-10.5); CARBON DIOXIDE 31 mmol/L (22-29); CHLORIDE 103 mmol/L (98-107); CREATININE 1.08 mg/dL (0.60-1.30); GLOMERULAR FILTR. RATE CALC > 60 mL/min (>60); GLUCOSE,RANDOM 81 mg/dL (70-110); PHOSPHORUS 2.7 mg/dL (2.5-4.9); POTASSIUM 4.1 mmol/L (3.5-5.1); SODIUM SERUM 142 mmol/L (136-145); UREA NITROGEN, BLOOD 19 mg/dL (7-18)
[2020-06-17] MEDS: MULTIVITAMINS WITH MINERALS, THERAPEUTIC TABLET PO SCH (08:07)
[2020-06-17] MEDS: FAMOTIDINE 20 MG TABLET PO SCH ×2 (08:07→21:21)
[2020-06-17] MEDS: RIFAMPIN 300 MG CAPSULE PO SCH (08:08)
[2020-06-17] MEDS: ETHAMBUTOL HCL 400 MG TABLET PO SCH (08:08)
[2020-06-17] MEDS: PYRIDOXINE HCL 50 MG TABLET PO SCH (08:09)
[2020-06-17] MEDS: PYRAZINAMIDE 500 MG TABLET PO SCH (08:09)
[2020-06-17 08:10] VITALS: BP 120/87
[2020-06-17] MEDS: ISONIAZID 300 MG TABLET PO SCH (08:10)
[2020-06-17] MEDS: PANTOPRAZOLE SODIUM 40 MG DR TABLET PO SCH ×2 (08:10→21:21)
[2020-06-17] MEDS: CARVEDILOL 3.125 MG TABLET PO SCH ×2 (08:10→21:21)
[2020-06-17 12:00] VITALS: BP 118/88
[2020-06-17 15:59] VITALS: BP 127/85
[2020-06-18 00:49] VITALS: BP 119/79
[2020-06-18] MEDS: MORPHINE SULFATE 2 MG/ML SYRINGE IVP PRN ×5 (04:29→20:54)
[2020-06-18 05:37] VITALS: BP 110/81
[2020-06-18 07:08] LABS: BASOPHILS % (AUTO) 0.6 % (0.0-2.0); EOSINOPHILS % (AUTO) 1.6 % (1.0-6.0); HEMATOCRIT 28.1 % (41-53); HEMOGLOBIN 8.6 g/dL (13.5-17.5); LYMPHOCYTES # (AUTO) 0.6 K/uL (1.0-4.8); LYMPHOCYTES % (AUTO) 13.3 % (22.0-44.0); MEAN CORPUSCULAR HGB CONC 30.5 G/dL (31.0-37.0); MEAN CORPUSCULAR VOLUME 82 fL (80-100); MONOCYTES # (AUTO) 0.5 K/uL (0.1-1.0); MONOCYTES % (AUTO) 11.2 % (2.0-9.0); NEUTROPHILS # (AUTO) 3.5 K/uL (1.8-7.7); NEUTROPHILS % (AUTO) 73.3 % (40.0-70.0); PLATELET COUNT (AUTO) 118 K/uL (150-450); RED BLOOD CELL COUNT(AUTO) 3.42 MIL/uL (4.50-5.90); RED CELL DISTRIBUTION WIDTH 23.3 % (11.5-14.5)
[2020-06-18 07:19] LABS: ALANINE AMINOTRANSFERASE 8 U/L (12-78); ALBUMIN 2.3 g/dL (3.4-5.0); ALKALINE PHOSPHATASE 95 U/L (46-116); ANION GAP 6 mmol/L (8-16); ASPARTATE AMINOTRANSFERASE 18 U/L (15-37); BILIRUBIN,TOTAL 2.1 mg/dL (0.1-1.0); CALCIUM, TOTAL 7.2 mg/dL (8.8-10.5); CARBON DIOXIDE 28 mmol/L (22-29); CHLORIDE 108 mmol/L (98-107); CREATININE 0.89 mg/dL (0.60-1.30); GLOMERULAR FILTR. RATE CALC > 60 mL/min (>60); GLUCOSE,RANDOM 68 mg/dL (70-110); POTASSIUM 4.1 mmol/L (3.5-5.1); SODIUM SERUM 142 mmol/L (136-145); TOTAL PROTEIN, SERUM 5.7 g/dL (6.4-8.2); UREA NITROGEN, BLOOD 16 mg/dL (7-18)
[2020-06-18] MEDS: FAMOTIDINE 20 MG TABLET PO SCH ×2 (07:55→20:54)
[2020-06-18] MEDS: MULTIVITAMINS WITH MINERALS, THERAPEUTIC TABLET PO SCH (07:55)
[2020-06-18] MEDS: PYRIDOXINE HCL 50 MG TABLET PO SCH (07:55)
[2020-06-18] MEDS: CARVEDILOL 3.125 MG TABLET PO SCH ×2 (07:55→20:54)
[2020-06-18] MEDS: PANTOPRAZOLE SODIUM 40 MG DR TABLET PO SCH ×2 (07:55→20:54)
[2020-06-18] MEDS: ISONIAZID 300 MG TABLET PO SCH (07:56)
[2020-06-18] MEDS: PYRAZINAMIDE 500 MG TABLET PO SCH (07:56)
[2020-06-18] MEDS: RIFAMPIN 300 MG CAPSULE PO SCH (07:56)
[2020-06-18] MEDS: ETHAMBUTOL HCL 400 MG TABLET PO SCH (07:56)
[2020-06-18] MEDS: LISINOPRIL 5 MG TABLET PO SCH (08:01)
[2020-06-18 08:05] VITALS: BP 119/80
[2020-06-18 11:50] VITALS: BP 108/80
[2020-06-18 16:08] VITALS: BP 111/81
[2020-06-18] MEDS: ACETAMINOPHEN 325 MG TABLET PO PRN (16:18)
[2020-06-18 18:16] LABS: APPEARANCE,URINE CLEAR (CLEAR); BILIRUBIN,URINE PRELIM. POSITIVE (NEGATIVE); GLUCOSE, URINE (UA) NEGATIVE (NEGATIVE); KETONES,URINE TRACE mg/dL (NEGATIVE); LEUKOCYTE ESTERASE ,URINE SMALL (NEGATIVE); OCCULT BLOOD,URINE LARGE (NEGATIVE); PROTEIN,URINE SEE CONFIRM (NEGATIVE)
[2020-06-18 18:19] LABS: BACTERIA,URINE Rare /HPF (None Seen); NITRATE,URINE NEGATIVE (NEGATIVE); RBC,URINE 51-100 /HPF (0-2); SQUAMOUS EPITHELIAL CELL,UR Few /LPF (None Seen); SULFOSALICYLIC ACID,URINE 3+ (Negative)
[2020-06-18 18:23] LABS: HEMATOCRIT 32.9 % (41-53); HEMOGLOBIN 10.2 g/dL (13.5-17.5)
[2020-06-18 20:00] VITALS: BP 110/77
[2020-06-19] VITALS (7 sets, daily range): BP systolic 110–131; BP diastolic 67–94
[2020-06-19] MEDS: MORPHINE SULFATE 2 MG/ML SYRINGE IVP PRN ×5 (04:22→20:19)
[2020-06-19] MEDS: ACETAMINOPHEN 325 MG TABLET PO PRN ×2 (04:22→20:19)
[2020-06-19 06:35] LABS: BASOPHILS % (AUTO) 1.1 % (0.0-2.0); EOSINOPHILS % (AUTO) 2.5 % (1.0-6.0); HEMATOCRIT 32.2 % (41-53); HEMOGLOBIN 10.2 g/dL (13.5-17.5); LYMPHOCYTES # (AUTO) 0.7 K/uL (1.0-4.8); LYMPHOCYTES % (AUTO) 12.9 % (22.0-44.0); MEAN CORPUSCULAR HEMOGLOBIN 24.9 pg (26.0-34.0); MEAN CORPUSCULAR HGB CONC 31.8 G/dL (31.0-37.0); MEAN CORPUSCULAR VOLUME 78 fL (80-100); MONOCYTES # (AUTO) 0.6 K/uL (0.1-1.0); MONOCYTES % (AUTO) 10.8 % (2.0-9.0); NEUTROPHILS # (AUTO) 3.7 K/uL (1.8-7.7); NEUTROPHILS % (AUTO) 72.7 % (40.0-70.0); PLATELET COUNT (AUTO) 150 K/uL (150-450); RED CELL DISTRIBUTION WIDTH 23.5 % (11.5-14.5)
[2020-06-19 07:11] LABS: ANION GAP 7 mmol/L (8-16); CARBON DIOXIDE 27 mmol/L (22-29); CHLORIDE 96 mmol/L (98-107); CREATININE 0.94 mg/dL (0.60-1.30); GLOMERULAR FILTR. RATE CALC > 60 mL/min (>60); GLUCOSE,RANDOM 90 mg/dL (70-110); POTASSIUM 4.7 mmol/L (3.5-5.1); SODIUM SERUM 130 mmol/L (136-145); UREA NITROGEN, BLOOD 19 mg/dL (7-18)
[2020-06-19] MEDS: ISONIAZID 300 MG TABLET PO SCH (07:46)
[2020-06-19] MEDS: PYRAZINAMIDE 500 MG TABLET PO SCH (07:46)
[2020-06-19] MEDS: MULTIVITAMINS WITH MINERALS, THERAPEUTIC TABLET PO SCH (07:46)
[2020-06-19] MEDS: RIFAMPIN 300 MG CAPSULE PO SCH (07:46)
[2020-06-19] MEDS: PANTOPRAZOLE SODIUM 40 MG DR TABLET PO SCH ×2 (07:46→21:04)
[2020-06-19] MEDS: PYRIDOXINE HCL 50 MG TABLET PO SCH (07:46)
[2020-06-19] MEDS: CARVEDILOL 3.125 MG TABLET PO SCH ×2 (07:46→20:28)
[2020-06-19] MEDS: LISINOPRIL 5 MG TABLET PO SCH (07:46)
[2020-06-19] MEDS: ETHAMBUTOL HCL 400 MG TABLET PO SCH (07:47)
[2020-06-19] MEDS: FAMOTIDINE 20 MG TABLET PO SCH ×2 (07:47→20:19)
[2020-06-19] MEDS ORDERED: SODIUM CHLORIDE 0.9% 500 ML IV ONE (12:04)
[2020-06-19] MEDS: CefTRIAXone 1 GM/DEXTROSE 50 ML IV SCH (12:12)
[2020-06-19] MEDS ORDERED: BARIUM SULFATE 0.1% SUSPENSION 450 ML BOTTLE ONE (22:26)
[2020-06-20] MEDS: MORPHINE SULFATE 2 MG/ML SYRINGE IVP PRN ×2 (01:43→04:59)
[2020-06-20 03:50] VITALS: BP 108/66
[2020-06-20 07:16] LABS: BASOPHILS % (AUTO) 0.5 % (0.0-2.0); EOSINOPHILS % (AUTO) 3.2 % (1.0-6.0); HEMOGLOBIN 9.5 g/dL (13.5-17.5); LYMPHOCYTES # (AUTO) 0.7 K/uL (1.0-4.8); LYMPHOCYTES % (AUTO) 15.1 % (22.0-44.0); MEAN CORPUSCULAR HGB CONC 30.6 G/dL (31.0-37.0); MEAN CORPUSCULAR VOLUME 82 fL (80-100); MONOCYTES # (AUTO) 0.7 K/uL (0.1-1.0); MONOCYTES % (AUTO) 14.2 % (2.0-9.0); NEUTROPHILS # (AUTO) 3.2 K/uL (1.8-7.7); PLATELET COUNT (AUTO) 144 K/uL (150-450); RED BLOOD CELL COUNT(AUTO) 3.79 MIL/uL (4.50-5.90); RED CELL DISTRIBUTION WIDTH 23.6 % (11.5-14.5)
[2020-06-20] MEDS ORDERED: BARIUM SULFATE 0.1% SUSPENSION 450 ML BOTTLE ONE (07:17)
[2020-06-20 07:25] LABS: INR 1.4 (0.9-1.1); PROTHROMBIN TIME 14.9 SEC (9.4-11.6)
[2020-06-20 08:12] VITALS: BP 114/87
[2020-06-20 08:18] LABS: ALANINE AMINOTRANSFERASE 10 U/L (12-78); ALKALINE PHOSPHATASE 134 U/L (46-116); ANION GAP 3 mmol/L (8-16); ASPARTATE AMINOTRANSFERASE 18 U/L (15-37); BILIRUBIN,TOTAL 1.4 mg/dL (0.1-1.0); CALCIUM, TOTAL 7.2 mg/dL (8.8-10.5); CARBON DIOXIDE 30 mmol/L (22-29); CHLORIDE 102 mmol/L (98-107); CREATININE 0.94 mg/dL (0.60-1.30); GLOMERULAR FILTR. RATE CALC > 60 mL/min (>60); GLUCOSE,RANDOM 68 mg/dL (70-110); POTASSIUM 4.2 mmol/L (3.5-5.1); SODIUM SERUM 135 mmol/L (136-145); TOTAL PROTEIN, SERUM 5.7 g/dL (6.4-8.2); UREA NITROGEN, BLOOD 20 mg/dL (7-18)
[2020-06-20] MEDS: ISONIAZID 300 MG TABLET PO SCH (09:02)
[2020-06-20] MEDS: PYRAZINAMIDE 500 MG TABLET PO SCH (09:02)
[2020-06-20] MEDS: PYRIDOXINE HCL 50 MG TABLET PO SCH (09:02)
[2020-06-20] MEDS: LISINOPRIL 5 MG TABLET PO SCH (09:03)
[2020-06-20] MEDS: FAMOTIDINE 20 MG TABLET PO SCH ×2 (09:04→20:26)
[2020-06-20] MEDS: ETHAMBUTOL HCL 400 MG TABLET PO SCH (09:04)
[2020-06-20] MEDS: MULTIVITAMINS WITH MINERALS, THERAPEUTIC TABLET PO SCH (09:04)
[2020-06-20] MEDS: PANTOPRAZOLE SODIUM 40 MG DR TABLET PO SCH ×2 (09:04→20:26)
[2020-06-20] MEDS: CARVEDILOL 3.125 MG TABLET PO SCH ×2 (09:04→20:27)
[2020-06-20] MEDS: RIFAMPIN 300 MG CAPSULE PO SCH (09:04)
[2020-06-20] MEDS: ACETAMINOPHEN 325 MG TABLET PO PRN ×2 (09:05→17:28)
[2020-06-20 11:22] VITALS: BP 121/87
[2020-06-20] MEDS: CefTRIAXone 1 GM/DEXTROSE 50 ML IV SCH (11:58)
[2020-06-20 15:43] VITALS: BP 124/72
[2020-06-20] MEDS: BENZONATATE 100 MG CAPSULE PO PRN ×2 (17:28→20:37)
[2020-06-20 20:49] VITALS: BP 118/84
[2020-06-21 05:16] VITALS: BP 110/81
[2020-06-21] MEDS: ACETAMINOPHEN 325 MG TABLET PO PRN ×2 (05:43→20:13)
[2020-06-21 06:17] LABS: BASOPHILS % (AUTO) 0.4 % (0.0-2.0); EOSINOPHILS % (AUTO) 1.8 % (1.0-6.0); HEMOGLOBIN 10.4 g/dL (13.5-17.5); LYMPHOCYTES # (AUTO) 0.6 K/uL (1.0-4.8); LYMPHOCYTES % (AUTO) 8.5 % (22.0-44.0); MEAN CORPUSCULAR HEMOGLOBIN 25.3 pg (26.0-34.0); MEAN CORPUSCULAR HGB CONC 31.5 G/dL (31.0-37.0); MEAN CORPUSCULAR VOLUME 80 fL (80-100); MONOCYTES # (AUTO) 1.2 K/uL (0.1-1.0); MONOCYTES % (AUTO) 15.8 % (2.0-9.0); NEUTROPHILS # (AUTO) 5.6 K/uL (1.8-7.7); NEUTROPHILS % (AUTO) 73.5 % (40.0-70.0); PLATELET COUNT (AUTO) 161 K/uL (150-450); RED BLOOD CELL COUNT(AUTO) 4.12 MIL/uL (4.50-5.90); RED CELL DISTRIBUTION WIDTH 23.9 % (11.5-14.5)
[2020-06-21 07:08] LABS: ALANINE AMINOTRANSFERASE 7 U/L (12-78); ALBUMIN 2.2 g/dL (3.4-5.0); ALKALINE PHOSPHATASE 139 U/L (46-116); ANION GAP 7 mmol/L (8-16); ASPARTATE AMINOTRANSFERASE 19 U/L (15-37); BILIRUBIN,TOTAL 2.6 mg/dL (0.1-1.0); CALCIUM, TOTAL 8.2 mg/dL (8.8-10.5); CARBON DIOXIDE 29 mmol/L (22-29); CHLORIDE 100 mmol/L (98-107); CREATININE 0.98 mg/dL (0.60-1.30); GLOMERULAR FILTR. RATE CALC > 60 mL/min (>60); GLUCOSE,RANDOM 78 mg/dL (70-110); POTASSIUM 4.9 mmol/L (3.5-5.1); SODIUM SERUM 136 mmol/L (136-145); TOTAL PROTEIN, SERUM 6.6 g/dL (6.4-8.2); UREA NITROGEN, BLOOD 18 mg/dL (7-18)
[2020-06-21 08:11] VITALS: BP 120/87
[2020-06-21] MEDS: LISINOPRIL 5 MG TABLET PO SCH (09:02)
[2020-06-21] MEDS: PYRIDOXINE HCL 50 MG TABLET PO SCH (09:02)
[2020-06-21] MEDS: ISONIAZID 300 MG TABLET PO SCH (09:02)
[2020-06-21] MEDS: PYRAZINAMIDE 500 MG TABLET PO SCH (09:02)
[2020-06-21] MEDS: RIFAMPIN 300 MG CAPSULE PO SCH (09:02)
[2020-06-21] MEDS: ETHAMBUTOL HCL 400 MG TABLET PO SCH (09:02)
[2020-06-21] MEDS: CARVEDILOL 3.125 MG TABLET PO SCH ×2 (09:03→20:12)
[2020-06-21] MEDS: FAMOTIDINE 20 MG TABLET PO SCH ×2 (09:03→20:12)
[2020-06-21] MEDS: PANTOPRAZOLE SODIUM 40 MG DR TABLET PO SCH ×2 (09:03→20:12)
[2020-06-21] MEDS: MULTIVITAMINS WITH MINERALS, THERAPEUTIC TABLET PO SCH (09:03)
[2020-06-21 11:21] VITALS: BP 110/77
[2020-06-21] MEDS: CefTRIAXone 1 GM/DEXTROSE 50 ML IV SCH (11:27)
[2020-06-21 20:06] VITALS: BP 112/79
[2020-06-22 00:08] VITALS: BP 114/73
[2020-06-22 04:40] VITALS: BP 101/59
[2020-06-22 06:29] LABS: BASOPHILS % (AUTO) 0.5 % (0.0-2.0); EOSINOPHILS % (AUTO) 1.9 % (1.0-6.0); HEMATOCRIT 33.1 % (41-53); HEMOGLOBIN 10.4 g/dL (13.5-17.5); LYMPHOCYTES # (AUTO) 0.8 K/uL (1.0-4.8); LYMPHOCYTES % (AUTO) 8.3 % (22.0-44.0); MEAN CORPUSCULAR HEMOGLOBIN 25.4 pg (26.0-34.0); MEAN CORPUSCULAR HGB CONC 31.5 G/dL (31.0-37.0); MEAN CORPUSCULAR VOLUME 81 fL (80-100); MONOCYTES # (AUTO) 1.3 K/uL (0.1-1.0); MONOCYTES % (AUTO) 14.5 % (2.0-9.0); NEUTROPHILS # (AUTO) 6.9 K/uL (1.8-7.7); NEUTROPHILS % (AUTO) 74.8 % (40.0-70.0); PLATELET COUNT (AUTO) 171 K/uL (150-450); RED BLOOD CELL COUNT(AUTO) 4.11 MIL/uL (4.50-5.90); RED CELL DISTRIBUTION WIDTH 23.7 % (11.5-14.5)
[2020-06-22 06:43] LABS: ALANINE AMINOTRANSFERASE 7 U/L (12-78); ALBUMIN 2.2 g/dL (3.4-5.0); ALKALINE PHOSPHATASE 139 U/L (46-116); ANION GAP 9 mmol/L (8-16); ASPARTATE AMINOTRANSFERASE 16 U/L (15-37); BILIRUBIN,TOTAL 2.1 mg/dL (0.1-1.0); CALCIUM, TOTAL 8.2 mg/dL (8.8-10.5); CARBON DIOXIDE 25 mmol/L (22-29); CHLORIDE 102 mmol/L (98-107); CREATININE 0.89 mg/dL (0.60-1.30); GLOMERULAR FILTR. RATE CALC > 60 mL/min (>60); GLUCOSE,RANDOM 86 mg/dL (70-110); POTASSIUM 4.9 mmol/L (3.5-5.1); SODIUM SERUM 136 mmol/L (136-145); TOTAL PROTEIN, SERUM 6.7 g/dL (6.4-8.2); UREA NITROGEN, BLOOD 20 mg/dL (7-18)
[2020-06-22 07:33] VITALS: BP 106/56
[2020-06-22] MEDS: MULTIVITAMINS WITH MINERALS, THERAPEUTIC TABLET PO SCH (08:19)
[2020-06-22] MEDS: PANTOPRAZOLE SODIUM 40 MG DR TABLET PO SCH ×2 (08:19→20:50)
[2020-06-22] MEDS: MORPHINE SULFATE 2 MG/ML SYRINGE IVP PRN ×2 (08:19→13:55)
[2020-06-22] MEDS: RIFAMPIN 300 MG CAPSULE PO SCH (08:20)
[2020-06-22] MEDS: PYRAZINAMIDE 500 MG TABLET PO SCH (08:20)
[2020-06-22] MEDS: LISINOPRIL 5 MG TABLET PO SCH (08:20)
[2020-06-22] MEDS: ISONIAZID 300 MG TABLET PO SCH (08:20)
[2020-06-22] MEDS: CARVEDILOL 3.125 MG TABLET PO SCH ×2 (08:20→21:00)
[2020-06-22] MEDS: ETHAMBUTOL HCL 400 MG TABLET PO SCH (08:20)
[2020-06-22] MEDS: FAMOTIDINE 20 MG TABLET PO SCH ×2 (08:20→20:49)
[2020-06-22] MEDS: PYRIDOXINE HCL 50 MG TABLET PO SCH (08:20)
[2020-06-22] MEDS: CefTRIAXone 1 GM/DEXTROSE 50 ML IV SCH (11:24)
[2020-06-22 11:39] VITALS: BP 112/62
[2020-06-22] MEDS: OxyCODONE HCL/ACETAMINOPHEN 5-325 MG TABLET PO PRN ×2 (12:25→20:56)
[2020-06-22 15:43] VITALS: BP 108/66
[2020-06-22 16:04] LABS: RAPID PLASMA REAGIN NONREACTIVE (NONREACTIVE)
[2020-06-22] MEDS: ACETAMINOPHEN 325 MG TABLET PO PRN (17:47)
[2020-06-22 20:12] VITALS: BP 102/64
[2020-06-23 04:59] VITALS: BP 105/64
[2020-06-23] MEDS: FAMOTIDINE 20 MG TABLET PO SCH ×2 (08:04→22:34)
[2020-06-23] MEDS: ISONIAZID 300 MG TABLET PO SCH (08:04)
[2020-06-23] MEDS: MULTIVITAMINS WITH MINERALS, THERAPEUTIC TABLET PO SCH (08:04)
[2020-06-23] MEDS: RIFAMPIN 300 MG CAPSULE PO SCH (08:04)
[2020-06-23] MEDS: ETHAMBUTOL HCL 400 MG TABLET PO SCH (08:05)
[2020-06-23] MEDS: PYRIDOXINE HCL 50 MG TABLET PO SCH (08:05)
[2020-06-23] MEDS: PANTOPRAZOLE SODIUM 40 MG DR TABLET PO SCH ×2 (08:05→22:34)
[2020-06-23] MEDS: PYRAZINAMIDE 500 MG TABLET PO SCH (08:05)
[2020-06-23] MEDS: CARVEDILOL 3.125 MG TABLET PO SCH ×2 (08:05→22:34)
[2020-06-23 08:13] VITALS: BP 104/64
[2020-06-23] MEDS: LISINOPRIL 5 MG TABLET PO SCH (08:13)
[2020-06-23] MEDS: CefTRIAXone 1 GM/DEXTROSE 50 ML IV SCH (10:04)
[2020-06-23 10:39] VITALS: BP 93/59
[2020-06-23 18:05] VITALS: BP 107/71
[2020-06-23] MEDS: ACETAMINOPHEN 325 MG TABLET PO PRN (18:15)
[2020-06-23 20:10] VITALS: BP 115/73
[2020-06-23 23:54] VITALS: BP 106/71
[2020-06-24] VITALS (7 sets, daily range): BP systolic 92–118; BP diastolic 65–81
[2020-06-24] MEDS: ACETAMINOPHEN 325 MG TABLET PO PRN (03:00)
[2020-06-24] MEDS: MULTIVITAMINS WITH MINERALS, THERAPEUTIC TABLET PO SCH (07:55)
[2020-06-24] MEDS: LISINOPRIL 5 MG TABLET PO SCH (07:55)
[2020-06-24] MEDS: CARVEDILOL 3.125 MG TABLET PO SCH ×2 (07:55→21:00)
[2020-06-24] MEDS: PYRAZINAMIDE 500 MG TABLET PO SCH (07:55)
[2020-06-24] MEDS: ISONIAZID 300 MG TABLET PO SCH (07:55)
[2020-06-24] MEDS: RIFAMPIN 300 MG CAPSULE PO SCH (07:56)
[2020-06-24] MEDS: PYRIDOXINE HCL 50 MG TABLET PO SCH (07:56)
[2020-06-24] MEDS: FAMOTIDINE 20 MG TABLET PO SCH ×2 (07:56→21:41)
[2020-06-24] MEDS: ETHAMBUTOL HCL 400 MG TABLET PO SCH (07:56)
[2020-06-24] MEDS: PANTOPRAZOLE SODIUM 40 MG DR TABLET PO SCH ×2 (07:56→21:41)
[2020-06-24 08:55] LABS: APPEARANCE,URINE CLEAR (CLEAR); BILIRUBIN,URINE NEGATIVE (NEGATIVE); GLUCOSE, URINE (UA) NEGATIVE (NEGATIVE); KETONES,URINE NEGATIVE (NEGATIVE); LEUKOCYTE ESTERASE ,URINE NEGATIVE (NEGATIVE); NITRATE,URINE NEGATIVE (NEGATIVE); OCCULT BLOOD,URINE NEGATIVE (NEGATIVE); PH,URINE 6.5 (5.0-8.0); PROTEIN,URINE NEGATIVE (NEGATIVE)
[2020-06-24] MEDS: CefTRIAXone 1 GM/DEXTROSE 50 ML IV SCH ×2 (11:12→14:07)
[2020-06-24] MEDS: OxyCODONE HCL/ACETAMINOPHEN 5-325 MG TABLET PO PRN (14:07)
[2020-06-25] MEDS: OxyCODONE HCL/ACETAMINOPHEN 5-325 MG TABLET PO PRN ×2 (00:46→19:55)
[2020-06-25] MEDS: ACETAMINOPHEN 325 MG TABLET PO PRN (00:46)
[2020-06-25 04:20] VITALS: BP 105/75
[2020-06-25 05:46] LABS: BASOPHILS % (AUTO) 1.1 % (0.0-2.0); EOSINOPHILS % (AUTO) 6.7 % (1.0-6.0); HEMATOCRIT 31.7 % (41-53); LYMPHOCYTES # (AUTO) 0.8 K/uL (1.0-4.8); LYMPHOCYTES % (AUTO) 20.9 % (22.0-44.0); MEAN CORPUSCULAR HEMOGLOBIN 24.9 pg (26.0-34.0); MEAN CORPUSCULAR HGB CONC 31.4 G/dL (31.0-37.0); MEAN CORPUSCULAR VOLUME 79 fL (80-100); MONOCYTES # (AUTO) 0.6 K/uL (0.1-1.0); NEUTROPHILS # (AUTO) 2.1 K/uL (1.8-7.7); NEUTROPHILS % (AUTO) 55.3 % (40.0-70.0); PLATELET COUNT (AUTO) 227 K/uL (150-450); RED CELL DISTRIBUTION WIDTH 23.2 % (11.5-14.5)
[2020-06-25 05:58] LABS: ALANINE AMINOTRANSFERASE 10 U/L (12-78); ALBUMIN 2.2 g/dL (3.4-5.0); ALKALINE PHOSPHATASE 146 U/L (46-116); ANION GAP 7 mmol/L (8-16); ASPARTATE AMINOTRANSFERASE 17 U/L (15-37); BILIRUBIN,TOTAL 1.4 mg/dL (0.1-1.0); CARBON DIOXIDE 27 mmol/L (22-29); CHLORIDE 102 mmol/L (98-107); CREATININE 0.97 mg/dL (0.60-1.30); GLOMERULAR FILTR. RATE CALC > 60 mL/min (>60); GLUCOSE,RANDOM 81 mg/dL (70-110); POTASSIUM 4.8 mmol/L (3.5-5.1); SODIUM SERUM 136 mmol/L (136-145); TOTAL PROTEIN, SERUM 7.1 g/dL (6.4-8.2); UREA NITROGEN, BLOOD 20 mg/dL (7-18)
[2020-06-25 08:12] VITALS: BP 113/86
[2020-06-25] MEDS: PANTOPRAZOLE SODIUM 40 MG DR TABLET PO SCH ×2 (08:23→19:55)
[2020-06-25] MEDS: LISINOPRIL 5 MG TABLET PO SCH (08:23)
[2020-06-25] MEDS: PYRIDOXINE HCL 50 MG TABLET PO SCH (08:23)
[2020-06-25] MEDS: CARVEDILOL 3.125 MG TABLET PO SCH ×2 (08:23→19:56)
[2020-06-25] MEDS: ISONIAZID 300 MG TABLET PO SCH (08:23)
[2020-06-25] MEDS: FAMOTIDINE 20 MG TABLET PO SCH ×2 (08:23→19:56)
[2020-06-25] MEDS: MULTIVITAMINS WITH MINERALS, THERAPEUTIC TABLET PO SCH (08:23)
[2020-06-25] MEDS: RIFAMPIN 300 MG CAPSULE PO SCH (08:24)
[2020-06-25] MEDS: PYRAZINAMIDE 500 MG TABLET PO SCH (08:24)
[2020-06-25] MEDS: ETHAMBUTOL HCL 400 MG TABLET PO SCH (08:24)
[2020-06-25] MEDS: CefTRIAXone 1 GM/DEXTROSE 50 ML IV SCH (10:40)
[2020-06-25 11:43] VITALS: BP 113/77
[2020-06-25 17:36] VITALS: BP 100/70
[2020-06-25 20:30] VITALS: BP 100/69
[2020-06-26] VITALS (7 sets, daily range): BP systolic 99–108; BP diastolic 66–89
[2020-06-26] MEDS: CARVEDILOL 3.125 MG TABLET PO SCH ×2 (08:29→21:00)
[2020-06-26] MEDS: ISONIAZID 300 MG TABLET PO SCH (08:30)
[2020-06-26] MEDS: FAMOTIDINE 20 MG TABLET PO SCH ×2 (08:30→21:04)
[2020-06-26] MEDS: RIFAMPIN 300 MG CAPSULE PO SCH (08:30)
[2020-06-26] MEDS: MULTIVITAMINS WITH MINERALS, THERAPEUTIC TABLET PO SCH (08:30)
[2020-06-26] MEDS: LISINOPRIL 5 MG TABLET PO SCH (08:30)
[2020-06-26] MEDS: PYRAZINAMIDE 500 MG TABLET PO SCH (08:30)
[2020-06-26] MEDS: PANTOPRAZOLE SODIUM 40 MG DR TABLET PO SCH ×2 (08:30→21:04)
[2020-06-26] MEDS: PYRIDOXINE HCL 50 MG TABLET PO SCH (08:30)
[2020-06-26] MEDS: ETHAMBUTOL HCL 400 MG TABLET PO SCH (08:31)
[2020-06-26] MEDS: PredniSONE 20 MG TABLET PO SCH (13:13)
[2020-06-26] MEDS: OxyCODONE HCL/ACETAMINOPHEN 5-325 MG TABLET PO PRN (21:04)
[2020-06-27 04:56] VITALS: BP 108/81
[2020-06-27 05:51] LABS: BASOPHILS % (AUTO) 2.5 % (0.0-2.0); EOSINOPHILS % (AUTO) 2.4 % (1.0-6.0); HEMATOCRIT 37.5 % (41-53); HEMOGLOBIN 11.2 g/dL (13.5-17.5); LYMPHOCYTES # (AUTO) 0.9 K/uL (1.0-4.8); MEAN CORPUSCULAR HEMOGLOBIN 24.7 pg (26.0-34.0); MEAN CORPUSCULAR HGB CONC 29.9 G/dL (31.0-37.0); MEAN CORPUSCULAR VOLUME 83 fL (80-100); MONOCYTES # (AUTO) 0.3 K/uL (0.1-1.0); MONOCYTES % (AUTO) 7.2 % (2.0-9.0); NEUTROPHILS # (AUTO) 3.1 K/uL (1.8-7.7); NEUTROPHILS % (AUTO) 67.9 % (40.0-70.0); PLATELET COUNT (AUTO) 342 K/uL (150-450); RED BLOOD CELL COUNT(AUTO) 4.54 MIL/uL (4.50-5.90); RED CELL DISTRIBUTION WIDTH 23.5 % (11.5-14.5)
[2020-06-27 06:10] LABS: ALANINE AMINOTRANSFERASE 10 U/L (12-78); ALBUMIN 2.4 g/dL (3.4-5.0); ALKALINE PHOSPHATASE 148 U/L (46-116); ANION GAP 9 mmol/L (8-16); ASPARTATE AMINOTRANSFERASE 16 U/L (15-37); BILIRUBIN,TOTAL 1.2 mg/dL (0.1-1.0); CALCIUM, TOTAL 8.8 mg/dL (8.8-10.5); CARBON DIOXIDE 25 mmol/L (22-29); CHLORIDE 103 mmol/L (98-107); GLOMERULAR FILTR. RATE CALC > 60 mL/min (>60); GLUCOSE,RANDOM 130 mg/dL (70-110); POTASSIUM 4.5 mmol/L (3.5-5.1); SODIUM SERUM 137 mmol/L (136-145); TOTAL PROTEIN, SERUM 8.1 g/dL (6.4-8.2); UREA NITROGEN, BLOOD 19 mg/dL (7-18)
[2020-06-27 07:44] VITALS: BP 107/78
[2020-06-27] MEDS: ETHAMBUTOL HCL 400 MG TABLET PO SCH (08:32)
[2020-06-27] MEDS: RIFAMPIN 300 MG CAPSULE PO SCH (08:32)
[2020-06-27] MEDS: ISONIAZID 300 MG TABLET PO SCH (08:32)
[2020-06-27] MEDS: PYRAZINAMIDE 500 MG TABLET PO SCH (08:32)
[2020-06-27] MEDS: PYRIDOXINE HCL 50 MG TABLET PO SCH (08:33)
[2020-06-27] MEDS: PANTOPRAZOLE SODIUM 40 MG DR TABLET PO SCH ×2 (08:33→20:49)
[2020-06-27] MEDS: MULTIVITAMINS WITH MINERALS, THERAPEUTIC TABLET PO SCH (08:33)
[2020-06-27] MEDS: FAMOTIDINE 20 MG TABLET PO SCH ×2 (08:33→20:49)
[2020-06-27] MEDS: CARVEDILOL 3.125 MG TABLET PO SCH ×2 (08:33→20:49)
[2020-06-27] MEDS: PredniSONE 20 MG TABLET PO SCH (08:33)
[2020-06-27] MEDS: LISINOPRIL 5 MG TABLET PO SCH (08:38)
[2020-06-27 11:17] VITALS: BP 92/69
[2020-06-27] MEDS ORDERED: PredniSONE 20 MG TABLET PO ONE (11:30)
[2020-06-27 15:27] VITALS: BP 113/65
[2020-06-27 19:43] VITALS: BP 118/70
[2020-06-27] MEDS: OxyCODONE HCL/ACETAMINOPHEN 5-325 MG TABLET PO PRN (20:57)
[2020-06-27 23:36] VITALS: BP 112/67
[2020-06-28 05:06] VITALS: BP 109/79
[2020-06-28 05:11] LABS: HIV 1-2 SCREEN 4TH GEN W/RFLX Non Reactive (Non Reactive)
[2020-06-28 07:31] VITALS: BP 112/68
[2020-06-28] MEDS: ISONIAZID 300 MG TABLET PO SCH (08:20)
[2020-06-28] MEDS: PYRIDOXINE HCL 50 MG TABLET PO SCH (08:20)
[2020-06-28] MEDS: PYRAZINAMIDE 500 MG TABLET PO SCH (08:20)
[2020-06-28] MEDS: PANTOPRAZOLE SODIUM 40 MG DR TABLET PO SCH ×2 (08:20→20:20)
[2020-06-28] MEDS: RIFAMPIN 300 MG CAPSULE PO SCH (08:21)
[2020-06-28] MEDS: MULTIVITAMINS WITH MINERALS, THERAPEUTIC TABLET PO SCH (08:22)
[2020-06-28] MEDS: PredniSONE 20 MG TABLET PO SCH (08:22)
[2020-06-28] MEDS: ETHAMBUTOL HCL 400 MG TABLET PO SCH (08:22)
[2020-06-28] MEDS: CARVEDILOL 3.125 MG TABLET PO SCH ×2 (08:22→20:20)
[2020-06-28] MEDS: LISINOPRIL 5 MG TABLET PO SCH (08:22)
[2020-06-28] MEDS: FAMOTIDINE 20 MG TABLET PO SCH ×2 (08:23→20:20)
[2020-06-28] MEDS: OxyCODONE HCL/ACETAMINOPHEN 5-325 MG TABLET PO PRN ×2 (08:34→20:24)
[2020-06-28 19:55] VITALS: BP 98/66
[2020-06-28 23:50] VITALS: BP 104/58
[2020-06-29] VITALS (16 sets, daily range): BP systolic 92–107; BP diastolic 53–76
[2020-06-29] MEDS: ACETAMINOPHEN 325 MG TABLET PO PRN (04:26)
[2020-06-29] MEDS: PANTOPRAZOLE SODIUM 40 MG DR TABLET PO SCH ×2 (08:23→20:58)
[2020-06-29] MEDS: ETHAMBUTOL HCL 400 MG TABLET PO SCH (08:23)
[2020-06-29] MEDS: PYRAZINAMIDE 500 MG TABLET PO SCH (08:23)
[2020-06-29] MEDS: LISINOPRIL 5 MG TABLET PO SCH (08:23)
[2020-06-29] MEDS: PredniSONE 20 MG TABLET PO SCH (08:23)
[2020-06-29] MEDS: MULTIVITAMINS WITH MINERALS, THERAPEUTIC TABLET PO SCH (08:23)
[2020-06-29] MEDS: FAMOTIDINE 20 MG TABLET PO SCH ×2 (08:23→20:58)
[2020-06-29] MEDS: ISONIAZID 300 MG TABLET PO SCH (08:24)
[2020-06-29] MEDS: CARVEDILOL 3.125 MG TABLET PO SCH ×2 (08:24→20:58)
[2020-06-29] MEDS: RIFAMPIN 300 MG CAPSULE PO SCH (08:24)
[2020-06-29] MEDS: PYRIDOXINE HCL 50 MG TABLET PO SCH (08:27)
[2020-06-29 11:05] LABS: GLUCOMETER DEV NAME(LOC) 6S.1; GLUCOSE,POINT OF CARE 119 MG/DL (70-110)
[2020-06-30 00:19] VITALS: BP 97/60
[2020-06-30 05:16] VITALS: BP 102/72
[2020-06-30 08:16] VITALS: BP 98/68
[2020-06-30] MEDS: MULTIVITAMINS WITH MINERALS, THERAPEUTIC TABLET PO SCH (08:50)
[2020-06-30] MEDS: PYRAZINAMIDE 500 MG TABLET PO SCH (08:50)
[2020-06-30] MEDS: FAMOTIDINE 20 MG TABLET PO SCH ×2 (08:50→21:34)
[2020-06-30] MEDS: RIFAMPIN 300 MG CAPSULE PO SCH (08:51)
[2020-06-30] MEDS: PredniSONE 20 MG TABLET PO SCH (08:51)
[2020-06-30] MEDS: ISONIAZID 300 MG TABLET PO SCH (08:51)
[2020-06-30] MEDS: PANTOPRAZOLE SODIUM 40 MG DR TABLET PO SCH ×2 (08:51→21:34)
[2020-06-30] MEDS: ETHAMBUTOL HCL 400 MG TABLET PO SCH (08:51)
[2020-06-30] MEDS: PYRIDOXINE HCL 50 MG TABLET PO SCH (08:51)
[2020-06-30 15:47] VITALS: BP 96/56
[2020-06-30 20:00] VITALS: BP 103/62
[2020-06-30] MEDS: ACETAMINOPHEN 325 MG TABLET PO PRN (21:37)
[2020-07-01 05:25] VITALS: BP 108/71
[2020-07-01 08:08] VITALS: BP 90/51
[2020-07-01] MEDS: ISONIAZID 300 MG TABLET PO SCH (08:36)
[2020-07-01] MEDS: PYRAZINAMIDE 500 MG TABLET PO SCH (08:36)
[2020-07-01] MEDS: PredniSONE 20 MG TABLET PO SCH (08:36)
[2020-07-01] MEDS: PYRIDOXINE HCL 50 MG TABLET PO SCH (08:37)
[2020-07-01] MEDS: RIFAMPIN 300 MG CAPSULE PO SCH (08:37)
[2020-07-01] MEDS: MULTIVITAMINS WITH MINERALS, THERAPEUTIC TABLET PO SCH (08:37)
[2020-07-01] MEDS: PANTOPRAZOLE SODIUM 40 MG DR TABLET PO SCH ×2 (08:37→21:00)
[2020-07-01] MEDS: FAMOTIDINE 20 MG TABLET PO SCH ×2 (08:37→21:00)
[2020-07-01] MEDS: ETHAMBUTOL HCL 400 MG TABLET PO SCH (08:47)
[2020-07-01] MEDS ORDERED: PYRI50CA PO (11:15)
[2020-07-01] MEDS ORDERED: ISON300 PO (11:15)
[2020-07-01] MEDS ORDERED: PYRA500 PO (11:17)
[2020-07-01] MEDS ORDERED: ETHA100T14 PO (11:17)
[2020-07-01] MEDS ORDERED: RIFA300 PO (11:20)
[2020-07-01] MEDS ORDERED: PRED10 PO (11:22)
[2020-07-01 15:28] VITALS: BP 106/59
[2020-07-01 20:08] VITALS: BP 110/76
[2020-07-02 00:10] VITALS: BP 97/64
[2020-07-02 04:20] VITALS: BP 105/73
[2020-07-02 08:12] VITALS: BP 102/56
[2020-07-02] MEDS: PANTOPRAZOLE SODIUM 40 MG DR TABLET PO SCH ×2 (09:48→20:02)
[2020-07-02] MEDS: PredniSONE 20 MG TABLET PO SCH (09:48)
[2020-07-02] MEDS: ISONIAZID 300 MG TABLET PO SCH (09:48)
[2020-07-02] MEDS: MULTIVITAMINS WITH MINERALS, THERAPEUTIC TABLET PO SCH (09:48)
[2020-07-02] MEDS: FAMOTIDINE 20 MG TABLET PO SCH ×2 (09:48→20:02)
[2020-07-02] MEDS: PYRAZINAMIDE 500 MG TABLET PO SCH (09:48)
[2020-07-02] MEDS: RIFAMPIN 300 MG CAPSULE PO SCH (09:49)
[2020-07-02] MEDS: ETHAMBUTOL HCL 400 MG TABLET PO SCH (09:51)
[2020-07-02] MEDS: PYRIDOXINE HCL 50 MG TABLET PO SCH (09:53)
[2020-07-02 15:13] VITALS: BP 140/90
[2020-07-02 20:30] VITALS: BP 104/67
[2020-07-03] MEDS: ACETAMINOPHEN 325 MG TABLET PO PRN (00:34)
[2020-07-03 03:45] VITALS: BP 96/54
[2020-07-03 08:18] VITALS: BP 102/62
[2020-07-03] MEDS: PYRIDOXINE HCL 50 MG TABLET PO SCH (08:20)
[2020-07-03] MEDS: ISONIAZID 300 MG TABLET PO SCH (08:20)
[2020-07-03] MEDS: MULTIVITAMINS WITH MINERALS, THERAPEUTIC TABLET PO SCH (08:20)
[2020-07-03] MEDS: RIFAMPIN 300 MG CAPSULE PO SCH (08:20)
[2020-07-03] MEDS: PYRAZINAMIDE 500 MG TABLET PO SCH (08:20)
[2020-07-03] MEDS: ETHAMBUTOL HCL 400 MG TABLET PO SCH (08:20)
[2020-07-03] MEDS: PANTOPRAZOLE SODIUM 40 MG DR TABLET PO SCH (08:20)
[2020-07-03] MEDS: PredniSONE 20 MG TABLET PO SCH (08:21)
[2020-07-03] MEDS: FAMOTIDINE 20 MG TABLET PO SCH (08:23)
[2020-07-03 15:11] VITALS: BP 106/68
== END 2020-07-03 17:10 | disposition home or self-care (01) | DRG 871 ==
LOC: EMS 02:51 → 6S 04:35 → EDBD 04:35 → 5S 04:35 → 5N 04:36 → 6S 22:00 → 5N 06-05 16:30 → 5S 06-05 21:25 → 6S 06-07 22:25 → ICU 06-14 17:45 → 5S 06-15 18:00 → 6S 06-27 10:45
PROVIDERS: ADMIT Internal Medicine; ATTEND Internal Medicine
PROC: 0W9B3ZZ Drainage of Left Pleural Cavity, Percutaneous Approach (ICD-10-PCS; 2020-06-06)
PROC: 0W9G3ZZ Drainage of Peritoneal Cavity, Percutaneous Approach (ICD-10-PCS; 2020-06-07)
PROC: 5A1935Z Respiratory Ventilation, Less than 24 Consecutive Hours (ICD-10-PCS; 2020-06-14)
PROC: 0BH17EZ Insertion of Endotracheal Airway into Trachea, Via Natural or Artificial Opening (ICD-10-PCS; 2020-06-14)
PROC: 5A12012 Performance of Cardiac Output, Single, Manual (ICD-10-PCS; 2020-06-14)
PROC: 0W9B3ZZ Drainage of Left Pleural Cavity, Percutaneous Approach (ICD-10-PCS; principal; 2020-06-14 14:00)
DX: A41.9 Sepsis, unspecified organism (principal); J18.9 Pneumonia, unspecified organism; E43 Unspecified severe protein-calorie malnutrition; I50.23 Acute on chronic systolic (congestive) heart failure; N17.0 Acute kidney failure with tubular necrosis; A15.9 Respiratory tuberculosis unspecified; I31.3 Pericardial effusion (noninflammatory); I42.9 Cardiomyopathy, unspecified; R18.8 Other ascites; J91.8 Pleural effusion in other conditions classified elsewhere; A15.0 Tuberculosis of lung; I11.0 Hypertensive heart disease with heart failure; D64.9 Anemia, unspecified; E03.9 Hypothyroidism, unspecified; E87.5 Hyperkalemia; K57.30 Diverticulosis of large intestine without perforation or abscess without bleeding; Z53.9 Procedure and treatment not carried out, unspecified reason; I34.0 Nonrheumatic mitral (valve) insufficiency; I48.91 Unspecified atrial fibrillation; Z21 Asymptomatic human immunodeficiency virus [HIV] infection status
CPT/HCPCS: 32555; 36600; 49083; 71250; 71260; 72193; 74160; 74176; 74177; 76881; 76942; 80074; 82042; 82465; 82570; 82805; 82945; 83540; 83550; 83605; 83615; 83735; 83986; 84100; 84156; 84157; 84311; 84439; 84443; 84481; 85014; 85018; 86038; 86160; 86225; 86403; 86430; 86480; 86592; 86618; 86631; 86632; 86635; 86738; 86850; 86900; 86901; 87015; 87040; 87070; 87081; 87086; 87101; 87107; 87186; 87188; 87205; 87206; 87305; 87340; 87385; 87389; 87426; 87449; 87556; 87798; 87804; 87899; 88108; 88312; 89051; 92950; 93306; 93308; 94002; 94640; 97110; 97116; 97162; 97530; 97535; 99285; A9575; G0378; J0330; J0690; J0696; J1644; J1815; J1940; J2250; J2270; J2405; J2704; J3010; J3475; J3490; J7030; J7040; J7050; J7060; J7120; P9047; 36415-L1; 36415-TC; 71045-TC; 80061-TC; 81003-TC; U0003